=== PATIENT | male | born 1980 | race Caucasian/White ===

== ENCOUNTER 2017-12-31 22:25 | Emergency (ER) | payer BC ==
[~2017-12-31] VITALS: Ht 190.5 cm; Wt 152.3 kg
[~2017-12-31 22:25] MED LIST: NOHOMEMEDS
[2018-01-01] MEDS ORDERED: ULTRAM50 MG PO (00:02)
[2018-01-01 00:11] VITALS: BP 147/89
== END 2018-01-01 00:12 | disposition home or self-care (01) ==
LOC: EME 22:25
DX: M76.62 Achilles tendinitis, left leg (principal); M77.32 Calcaneal spur, left foot
CPT/HCPCS: 73610; 99281; 99283